=== PATIENT | female | born 1995 ===

== ENCOUNTER 2017-05-06 20:56 | Emergency (ER) | payer MEDICAID ==
[2017-05-06 23:25] VITALS: BP 109/64; PULSE 92; RESP 18; TEMP 98.6; O2SAT 98
[2017-05-07 00:51] LABS: BASO # 0.1 K/uL (0.0-0.2); BASO % 0.7 % (0.0-2.0); EOS # 0.3 K/uL (0.0-0.7); EOS % 2.4 % (0.0-4.0); LYMPH # 2.5 K/uL (1.0-4.3); LYMPH % 23.1 % (20.0-40.0); MEAN CELL VOLUME 83.3 fl (81.0-99.0); MEAN CORPUSCULAR HEMOGLOBIN 27.1 pg (27.0-31.0); MEAN CORPUSCULAR HGB CONC 32.5 g/dL (33.0-37.0); MEAN PLATELET VOLUME 7.4 fl (7.2-11.7); MONO # 0.8 K/uL (0.0-0.8); MONO % 6.9 % (0.0-10.0); NEUT # 7.4 K/uL (1.8-7.0); NEUT % 66.9 % (50.0-75.0); RED CELL DISTRIBUTION WIDTH 14.1 % (11.5-14.5)
[2017-05-07 01:10] LABS: RBC URINE 2 /hpf (0-3); URINE BACTERIA RARE (<OCC); URINE BILIRUBIN NEGATIVE (NEGATIVE); URINE BLOOD NEGATIVE (NEGATIVE); URINE COLOR YELLOW (YELLOW); URINE GLUCOSE (UA) NEG (Normal); URINE KETONE NEGATIVE (NEGATIVE); URINE LEUKOCYTE ESTERASE MOD Leu/uL (Negative); URINE PROTEIN NEGATIVE (NEGATIVE); URINE UROBILINOGEN 0.2-1.0 mg/dL (0.2-1.0); WBC URINE 10 /hpf (0-5)
[2017-05-07 01:28] LABS: ALKALINE PHOSPHATASE 90 U/L (38-126); ALT/SGPT 23 U/L (9-52); AST/SGOT 18 U/L (14-36); BILIRUBIN,TOTAL 0.2 mg/dl (0.2-1.3); BLOOD UREA NITROGEN 6 mg/dl (7-17); CALCIUM 8.6 mg/dL (8.4-10.2); CARBON DIOXIDE 22 mmol/L (22-30); CHLORIDE 105 mmol/L (98-107); GFR AFRICAN-AMERICAN > 60; GLUCOSE,RANDOM 85 mg/dL (65-105); POTASSIUM 3.7 MMOL/L (3.6-5.0); SODIUM 135 mmol/l (132-148); TOTAL PROTEIN 7.3 G/DL (6.3-8.2)
--- NOTE | 2017-05-07 02:47 | ED PDOC ---
HPI: Abdomen Time Seen by Provider: 05/06/17 23:29 Chief Complaint (Nursing): Abdominal Pain Chief Complaint (Provider): abdominal pain History Per: Patient History/Exam Limitations: no limitations Onset/Duration Of Symptoms: Days Location Of Pain/Discomfort: Epigastric Additional History Per: Patient Additional Complaint(s): 22 y/o female, approx 25 weeks gestation, sent from OB-ED for eval of epigastric abdominal pain x 1 day. Denies fever, nausea/vomiting, chest pain, shortness of breath, palpitations, changes in bowel movements, dysuria, hematuria, vaginal bleeding/discharge. Patient currently on treatment for chlamydia. Past Medical History Reviewed: Historical Data, Nursing Documentation, Vital Signs Vital Signs: Last Vital Signs Temp 98.6 F 05/06/17 23:20 Pulse 92 H 05/06/17 23:20 Resp 18 05/06/17 23:20 BP 109/64 05/06/17 23:20 Pulse Ox 98 05/06/17 23:20 - Medical History PMH: Asthma - Surgical History Surgical History: No Surg Hx - Family History Family History: States: Unknown Family Hx - Immunization History Hx Tetanus Toxoid Vaccination: No Hx Influenza Vaccination: No Hx Pneumococcal Vaccination: No - Home Medications Home Medications: Ambulatory Orders Medication Instructions Recorded Albuterol HFA [Ventolin HFA 90 1 puff IH Q6 #1 inhaler 03/02/17 mcg/actuation (8 g)] Nitrofurantoin Macrocrystals 1 cap PO BID #14 cap 03/02/17 [Macrobid] Prednisone [Deltasone] 20 mg PO DAILY #3 tablet 03/02/17 Famotidine [Pepcid] 20 mg PO BID #10 tab 05/07/17 Nitrofurantoin Macrocrystals 100 mg PO BID #14 cap 05/07/17 [Macrobid] - Allergies Allergies/Adverse Reactions: Allergies Allergy/AdvReac Type Severity Reaction Status Date / Time No Known Allergies Allergy Verified 05/06/17 23:25 Review of Systems ROS Statement: Except As Marked, All Systems Reviewed And Found Negative Gastrointestinal: Positive for: Abdominal Pain Physical Exam - Reviewed Nursing Documentation Reviewed: Yes Vital Signs Reviewed: Yes - Physical Exam Appears: Positive for: Well, Non-toxic, No Acute Distress Head Exam: Positive for: ATRAUMATIC, NORMAL INSPECTION, NORMOCEPHALIC Skin: Positive for: Normal Color Eye Exam: Positive for: Normal appearance ENT: Positive for: Normal ENT Inspection Cardiovascular/Chest: Positive for: Regular Rate, Rhythm Respiratory: Positive for: Normal Breath Sounds Gastrointestinal/Abdominal: Positive for: Bowel Sounds, Soft, Tenderness ( epigastric, suprapubic). Negative for: Distended, Rebound Back: Positive for: Normal Inspection Extremity: Positive for: Normal ROM Neurologic/Psych: Positive for: Alert, Oriented - Laboratory Results Result Diagrams: 05/07/17 00:46 05/07/17 00:46 - ECG O2 Sat by Pulse Oximetry: 98 - Progress ED Course And Treament: labs, urine, IV pepcid On re-eval, patient states pain resolved. Patient educated on findings, discharged with rx Pepcid, Macrobid. Patient aware of anemia, advised iron supplement. 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 Return to ED for worsening/concerning symptoms. Disposition - Clinical Impression Clinical Impression: UTI in , Abdominal pain - Patient ED Disposition Is Patient to be Admitted: No Counseled Patient/Family Regarding: Studies Performed, Diagnosis, Need For Followup, Rx Given - Disposition Referrals: Meenu Sandoval MD [Primary Care Provider] - Disposition: Routine/Home Disposition Time: 02:30 Condition: IMPROVED Prescriptions: Famotidine [Pepcid] 20 mg PO BID #10 tab Nitrofurantoin Macrocrystals [Macrobid] 100 mg PO BID #14 cap Instructions: Urinary Tract Infection in Women (ED), Abdominal Pain in (ED)
== END 2017-05-07 03:08 | disposition home or self-care (01) ==
LOC: H.EROB2 20:56 → H.ER 20:56
DX: O23.40 Unspecified infection of urinary tract in pregnancy, unspecified trimester (principal); J45.909 Unspecified asthma, uncomplicated

== ENCOUNTER 2017-08-01 11:01 | Emergency (ER) | payer MEDICAID ==
[2017-08-01 14:12] VITALS: BMI 26.5
[2017-08-01 14:38] LABS: URINE BILIRUBIN NEGATIVE (NEGATIVE); URINE BLOOD NEGATIVE (NEGATIVE); URINE COLOR YELLOW (YELLOW); URINE GLUCOSE (UA) NEG (Normal); URINE KETONE NEGATIVE (NEGATIVE); URINE LEUKOCYTE ESTERASE MOD Leu/uL (Negative); URINE PROTEIN NEGATIVE (NEGATIVE); URINE UROBILINOGEN 0.2-1.0 mg/dL (0.2-1.0); WBC URINE 7 /hpf (0-5)
[2017-08-01] MEDS ORDERED: Lactated Ringer's 1,000 ML IV SCH (15:45)
[2017-08-01 16:29] LABS: BASO # 0.1 K/uL (0.0-0.2); BASO % 0.7 % (0.0-2.0); EOS # 0.1 K/uL (0.0-0.7); EOS % 1.1 % (0.0-4.0); HEMATOCRIT 28.4 % (34.0-47.0); LYMPH # 1.8 K/uL (1.0-4.3); LYMPH % 17.4 % (20.0-40.0); MEAN CELL VOLUME 74.1 fl (81.0-99.0); MEAN CORPUSCULAR HEMOGLOBIN 23.3 pg (27.0-31.0); MEAN CORPUSCULAR HGB CONC 31.5 g/dL (33.0-37.0); MEAN PLATELET VOLUME 7.9 fl (7.2-11.7); MONO # 0.5 K/uL (0.0-0.8); MONO % 4.8 % (0.0-10.0); NEUT # 7.7 K/uL (1.8-7.0); RED CELL DISTRIBUTION WIDTH 16.7 % (11.5-14.5); WHITE BLOOD COUNT 10.2 K/uL (4.8-10.8)
[2017-08-01] MEDS ORDERED: Betamethasone Soluspan 30 mg/5mL Inj Susp IM ONE (18:16)
[2017-08-06 13:48] VITALS: O2SAT 4
== END 2017-08-01 18:33 | disposition home or self-care (01) ==
LOC: H.EROB2 11:01
DX: O47.03 False labor before 37 completed weeks of gestation, third trimester (principal); Z3A.36 36 weeks gestation of pregnancy
CPT/HCPCS: 81003; 85025; 87086; 99283; J7120

== ENCOUNTER 2017-08-02 18:50 | Emergency (ER) | payer MEDICAID ==
--- NOTE | 2017-08-02 18:58 | OBHP ---
Datetime: 08/01/2017 15:54 IP Adm Impression: , intrauterine IP Admit Plan: Observation/Evaluation Admit Comment, IP Provider: Patient is a 22-year-old female 1 with an EDC of 08/27/2017 by a last menstrual period of 11/28/2016 and a 12 week ultrasound. She presents today with complaints of back pain. She denies coitus 1 month she denies ruptured membranes or vaginal bleeding. Her OB hist ory is significant for iron deficiency anemia and a positive chlamydia infection which was treated. OBhx: primigrivid Gynhx: hx of chlamydia, s/p treatment (03/20/17), never had a pap Past medical history: Asthma past surgical history: Denies Social history denies tobacco use alcohol or illicit drug use. No known drug allergies Medications: Proventil inhaler when necessary lately she is taking at several times a week: Ferrou s gluconate: vitamin Impression : 36.2 week gestation- HIV neg (third tri), RPR neg (third), rubella immune, O+, ppd neg, Tdap (06/05). Evaluate for UTI Plan: UA Observation addendum Addendum: Patient complaints of cramping rated 6/10. 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
[2017-08-02 19:48] VITALS: BMI 21.5
[2017-08-02] MEDS ORDERED: Betamethasone Soluspan 30 mg/5mL Inj Susp IM ONE (19:51)
[2017-08-03 01:28] VITALS: BP 107/70; PULSE 94; RESP 18; TEMP 98.1; O2SAT 100
--- NOTE | 2017-08-03 07:10 | OBHP ---
Datetime: 08/02/2017 19:00 IP Adm Impression: , intrauterine IP Admit Plan: Observation/Evaluation Admit Comment, IP Provider: Patient is a 22-year-old female 1 with an EDC of 08/27/2017 by a last menstrual period of 11/28/2016 and a 12 week ultrasound. She presents today for her second beta methasone injection. Last dose was given on 08/01/2017. OBhx: primigrivid Gynhx: hx of chlamydia, s/p treatment (03/20/17), never had a pap Past medical history: Asthma past surgical history: Denies Social history denies tobacco use alcohol or illicit drug use. No known drug allergies Medications: Proventil inhaler when necessary lately she is taking at several times a week: Ferrou s gluconate: vitamin Impression : 36.2 week gestation- HIV neg (third tri), RPR neg (third), rubella immune, O+, ppd neg, Tdap (06/05). Plan: Betamethasone 12mg x second dose Addendum: I saw exam patient at presentation. I discussed plan with patient. Plan for second dose of betamet hasone today. Maternal well-being and well-being reassuring at this time. Patient discharged to home with labor precautions. All patient questions are answered. Pelvic Type - PN: Not Done Extremities - PN: Normal Abdomen - PN: Normal Back - PN: Normal Breast - PN: Not Done Lungs - PN: Normal Heart - PN: Normal Thyroid - PN: Not Done Neurologic - PN: Normal HEENT - PN: Normal General - PN: Normal IP Hx Assessment: The History has been Reviewed and is Current EGA AdmitDate IP: 36.3 Vital Signs Provider: Reviewed; Within Normal Limits IP Chief Complaint: Other Genitourinary Exam: Not Done DTRs - PN: Not Done
== END 2017-08-02 20:30 | disposition home or self-care (01) ==
LOC: H.EROB2 18:50 → H.EROB 18:57 → H.EROB2 20:30
DX: O47.03 False labor before 37 completed weeks of gestation, third trimester (principal); Z3A.36 36 weeks gestation of pregnancy; Z23 Encounter for immunization
CPT/HCPCS: 96372; 99283; J0702

== ENCOUNTER 2017-08-15 13:38 | Inpatient (IN) | payer MEDICAID ==
[2017-08-15 14:37] VITALS: BMI 21.9
--- NOTE | 2017-08-15 15:44 | OBHP ---
Datetime: 08/15/2017 14:50 IP Adm Impression: Term, intrauterine IP Admit Plan: Observation/Evaluation Admit Comment, IP Provider: at 38w2d EDC 08/27/17 based on LMP c/w 1st TM u/s. Presents for cont ractions, more frequent in nature for several hours. Decreased movement since this morning when pain started. Patient only feels tightening of abdomen and can't tell if baby is moving. While being evaluated in OB ED she reports some movement. Denies VB, denies LOF, denies any trauma. PNC: [facility] [address] [place] [address] Dr. Alvares, resident PNI: 1. +chlamydia infection CHRISTIAN neg 07/25/17 2. Anemia: takes iron TID on 08/12/17 H/H 9.5/30.4 3. Growth lagging on u/s x 2 weeks latest u/s 08/13/17 HC 3%, BPD 3% EFW 2810g 16th%. MFM recommend s delivery at 39wks. Torch panel c/w past exposure to Parvovirus B19 and CMV. Neg HSV and neg Toxo. 4. Intermittend Asthma, no exacerbations this 5. GCT+/GTT neg 6. Threatened PTL on 08/01/17 SVE 1/0/-4, received betamethasone x 2 doses. PNL: GBS neg 07/25/17, GC/chla neg 07/25/17, ucx neg, HIV neg 06/12/17, RPR nr, RI, hepbsag neg. Pmhx: intermittent asthma, never intubated Pshx: denies Meds: iron and pnv All: denies Social hx: denies toxic habits x 3 see exam above A/P: 22 y/o at 38w2d here for contractions and decreased movement. 1. Fetus Category 1 tracing, loss of contact and movement on tracing when patient was sitting up t o be transported to u/s. 2. Early latent labor. 3. Decreased movement in setting of lagging growth, BPP done 2 days ago wnl, will repeat now and do prolonged monitoring. If testing is not reassuring will admit. 4. GBS neg 5. Re-examine after BPP. Pelvic Type - PN: Adequate Extremities - PN: Normal Abdomen - PN: Normal Back - PN: Normal Breast - PN: Normal Lungs - PN: Normal Heart - PN: Normal Thyroid - PN: Normal Neurologic - PN: Normal HEENT - PN: Normal General - PN: Normal FHR - Baseline A Provider: 130 Membranes, Provider: Intact Contraction Comments Provider: q5min EGA AdmitDate IP: 38.2 Vital Signs Provider: Reviewed; Within Normal Limits IP Chief Complaint: Uterine contractions; Decreased movement NICHD Variability Prov Fetus A: Moderate 6-25bpm NICHD Accel Fetus A IP Provider: [id number] FHR Category Provider Fetus A: Category I NICHD Decel Fetus A IP Provider: Early Dilatation, Provider: 2 Effacement, Provider: 20 Station, Provider: -3 Genitourinary Exam: Normal DTRs - PN: Normal
--- NOTE | 2017-08-15 15:59 | US ---
PROCEDURE: Limited biophysical profile HISTORY: Decreased movement COMPARISON: Not available TECHNIQUE: Limited biophysical profile examination was performed without general obstetrical ultrasound examination. FINDINGS: There is a single live intrauterine gestation identified in cephalic presentation. The heart rate is 147 beats per minute. A normal quantity of amniotic fluid is visualized. A left lateral placenta is identified. The cervix is poorly visualized due to the cephalic presentation. biometry was not performed at this time. A limited biophysical profile examination yields a score of 8 out of 8. IMPRESSION: Limited examination. Single live intrauterine gestation. Biophysical profile score 8 out of 8.
[2017-08-15] MEDS ORDERED: Lactated Ringer's 1,000 ML IV SCH ×2 (16:25→18:00)
--- NOTE | 2017-08-15 16:27 | OBHP ---
Datetime: 08/15/2017 16:20 Admit Comment, IP Provider: I saw and examined the patient and I reviewed the entire record on ecw and meditech and centricity. BPP: 07/09 NST non reactive SVE: 3-4/50/-3 A/P: on re-evaluation patient has non reassuring NST, early active labor, fetus with lagging growth x 2 weeks 1. admit to L_D, NPO, IVF, check labs 2. Fetus continuous monitoring, Cat 2 tracing 3. GBS neg 4. Patient requests epidural placement for analgesia 5. pelvis adequate, anticipate , vertex by u/s today 6. case d/w Dr. Sandoval Presentation-Admit: Vertex FHR - Baseline A Provider: 135 Contraction Comments Provider: Q4 NICHD Variability Prov Fetus A: Moderate 6-25bpm NICHD Accel Fetus A IP Provider: one FHR Category Provider Fetus A: Category II NICHD Decel Fetus A IP Provider: Early Dilatation, Provider: 3-4 Effacement, Provider: 50 Station, Provider: -3
[2017-08-15] MEDS: Lactated Ringer's 1,000 ML IV SCH ×2 (16:30→17:30)
[2017-08-15 16:58] LABS: BASO # 0.1 K/uL (0.0-0.2); BASO % 0.5 % (0.0-2.0); EOS % 0.3 % (0.0-4.0); HEMATOCRIT 30.3 % (34.0-47.0); LYMPH # 1.4 K/uL (1.0-4.3); MEAN CELL VOLUME 72.4 fl (81.0-99.0); MEAN CORPUSCULAR HEMOGLOBIN 22.2 pg (27.0-31.0); MEAN CORPUSCULAR HGB CONC 30.6 g/dL (33.0-37.0); MEAN PLATELET VOLUME 7.6 fl (7.2-11.7); MONO % 6.3 % (0.0-10.0); NEUT # 13.4 K/uL (1.8-7.0); NEUT % 83.9 % (50.0-75.0); PLATELET COUNT 299 K/uL (130-400); RED CELL DISTRIBUTION WIDTH 17.6 % (11.5-14.5); WHITE BLOOD COUNT 15.9 K/uL (4.8-10.8)
[2017-08-15] MEDS ORDERED: Fentanyl/Bupivacaine HCl 250 ML EPI ONE (18:15)
[2017-08-15 18:36] LABS: NEUTROPHIL 79 % (42-75); TOTAL CELLS COUNTED 100
[2017-08-16] MEDS ORDERED: Oxycodone/Acetaminophen 5/325 mg Tab PO PRN ×2 (01:29→02:38)
--- NOTE | 2017-08-16 02:37 | OBDS ---
DELIVERY PERSONNEL Delivery Doctor: Mahamed Aleman MD Director [employer]: Elisabeth Patel RN Anesthesiologist: Joe Santiago MD Resident: Frederick Alvares MATERNAL INFORMATION Delivery Anesthesia: Epidural Medications in Delivery: Pitocin Estimated Blood Loss (ml): 200 Placenta Cultured: No Maternal Complications: None Provider Comments: Dilivered live baby girl at 1:18 AM the baby was bulb suctioned on the perinium a nd transfered to the maternal chest. The cord was clamped, 3 vessels noted. Cord blood was obtained a nd sent to the lab. The placenta was delivered at 1:26 AM intact. Estimated blood loss was 200 ml. Fi rst degree laceration was noted and repaired with 3.0 vicryl. Mother tolerated the procedure [facility] Lurdes Alvares PGY-2 LABOR SUMMARY EDC: 08/27/2017 00:00 No. Babies in Womb: 1 Attempted: No Labor Anesthesia: Epidural LABOR INFORMATION Reason for Induction: Not Applicable Onset of Labor: 08/15/2017 17:30 Complete Dilatation: 08/15/2017 23:37 Group B Beta Strep: Negative Antibiotics # of Doses: n/a Antibiotics Time of Last Dose: n/a Steroids Given: None Reason Steroids Not Administered: Not Applicable MEMBRANES Membranes Rupture Method: Artificial Rupture of Membranes: 08/15/2017 19:00 Length of Rupture (hrs): 6.30 Amniotic Fluid Color: Clear Amniotic Fluid Amount: Small Amniotic Fluid Odor: Normal STAGES OF LABOR Stage 1 hrs: 6 Stage 1 min: 7 Stage 2 hrs: 1 Stage 2 min: 41 Stage 3 hrs: 0 Stage 3 min: 18 Total Time in Labor hrs: 8 Total Time in Labor min: 6 VAGINAL DELIVERY Episiotomy: None Laceration Extension: First Degree Laceration Type: Vaginal Laceration Repair: Yes Laceration Repair Note: Repaired with 3-0 vicryl Initial Vag Sponge Count: 15 Final Vag Sponge Count: 15 Initial Vag Sharps Count: 1 Final Vag Sharps Count: 1 Sponge Count Correct: Yes Sharps Count Correct: Yes Count Comment: count correct BABY A INFORMATION Infant Delivery Date/Time: 08/16/2017 01:18 Method of Delivery: Vaginal Born in Route : No : N/A Forceps: N/A Vacuum Extraction: N/A Shoulder Dystocia : No SHOULDER DYSTOCIA BABY A Delivery Date/Time: 08/16/2017 01:18 PRESENTATION/POSITION BABY A Presentation: Cephalic Cephalic Presentation: Vertex PLACENTA INFORMATION BABY A Placenta Delivery Time : 08/16/2017 01:36 Placenta Method of Delivery: Spontaneous Placenta Status: Delivered SCORES BABY A Heart Rate 1 min: >100 bpm Resp Effort 1 min: Good Cry Reflex Irritability 1 min: Cough or Sneeze or Pulls Away Muscle Tone 1 min: Active Motion Color 1 min: Body [place], Extremities Blue Resuscitation Effort 1 min: Tactile Stimulation SCORE 1 MIN: 9 Heart Rate 5 min: >100 bpm Resp Effort 5 min: Good Cry Reflex Irritability 5 min: Cough or Sneeze or Pulls Away Muscle Tone 5 min: Active Motion Color 5 min: Body [place], Extremities Blue Resuscitation Effort 5 min: N/A SCORE 5 MIN: 9 INFORMATION BABY A Gestational Age at Delivery: 38.3 Gestational Status: Term Outcome : Liveborn Condition : Stable Sex: Female IDENTIFICATION/MEDS BABY A ID Band Number: [id number] ID Band Location: Left Leg; Left Arm WEIGHT/LENGTH BABY A Birthweight (gms): 2635 Infant Weight (lb): 5 Weight (oz): 13 CORD INFORMATION BABY A No. 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
[2017-08-16] MEDS ORDERED: Influenza Vaccine 18yr & older 0.5 ML/45 MCG SYR IM ONE (20:00)
[2017-08-17 06:36] LABS: MEAN CELL VOLUME 73.1 fl (81.0-99.0); MEAN CORPUSCULAR HEMOGLOBIN 22.2 pg (27.0-31.0); MEAN CORPUSCULAR HGB CONC 30.4 g/dL (33.0-37.0); RED CELL DISTRIBUTION WIDTH 17.5 % (11.5-14.5); WHITE BLOOD COUNT 20.7 K/uL (4.8-10.8)
--- NOTE | 2017-08-17 10:25 | OBPPN ---
Datetime: 08/16/2017 06:53 PP Pain Prov: Within normal limits PP Nausea Prov: Denies PP Flatus Prov: Yes PP BM Prov: No PP Breasts Prov: Not Done PP Heart Prov: Normal PP Lungs Prov: Normal PP Abdomen/Uterus Prov: Normal PP Lochia Prov: Normal PP Vulva/Perineum Prov: Not Done PP CVA Tenderness Prov: Normal PP Extremities Prov: Normal PP C/S Incision Prov: Not Applicable PP Progress Prov: Normal PP Impression Prov: Normal progression PP Plan Prov: Continue present management PP Progress Note Prov: S: 22 yo s/p NVD on 08/06/17 at 01:18. Pt. is seen and examined at [facility] this AM. No overnight events. Pt denies abdominal pain. Pt is ambulating without any difficulties. Breast feeding baby. Lochia is similar to light menses in volume. Voiding freely, No Bowel movement, but passing gas per rectum. Denies fever/chills, diarrhea, nausea/vomiting, chest pain, dyspnea, and dizziness. O: VS: stable GEN: NAD Cardio: S1S2, no M/G/R Resp: clear breath sounds b/l Abdomen: BS+, NT, Uterus is firm and at the level of the umbilicus. EXT: No edema, calves nontender NEURO/PSYCHI: AAOx3, no grossly focal deficit, preserved affect and mood. Assessment/Plan: 22 yo s/p NVD on 08/06/17 at 01:18. Pt remains afebrile, doing well on PPD0. OOB with caution SCDs for DVT prophylaxis, pt ambulating Ibuprofen 600mg for pain. Colace 100mg PO BID/Senokot 17.2 mg qHS for constipation Encourage and ambulating F/u CBC post-delivery: pending --- Franklin Wyman, PGY-1 [facility] On rounds this AM, I saw and examined this patinent. Agree with PGY1 note. BARB MUELLER PP Procedures: None Vital Signs Provider PP: Reviewed; Within Normal Limits
--- NOTE | 2017-08-17 11:16 | OBPPN ---
Datetime: 08/17/2017 11:10 PP Pain Prov: Within normal limits PP Nausea Prov: Denies PP Flatus Prov: Yes PP BM Prov: Yes PP Breasts Prov: Normal PP Heart Prov: Normal PP Lungs Prov: Normal PP Abdomen/Uterus Prov: Normal PP Lochia Prov: Normal PP Vulva/Perineum Prov: Normal PP CVA Tenderness Prov: Normal PP Extremities Prov: Normal PP Progress Prov: Normal PP Impression Prov: Normal progression PP Plan Prov: Continue present management PP Progress Note Prov: PPD 1 anemia (hb 6/ hct 22) Asymtpomatic continue care monitor vital/orthostatics Vital Signs Provider PP: Reviewed; Within Normal Limits
[2017-08-17 20:41] LABS: BASO # 0.1 K/uL (0.0-0.2); BASO % 0.6 % (0.0-2.0); EOS # 0.2 K/uL (0.0-0.7); HEMATOCRIT 28.8 % (34.0-47.0); LYMPH # 2.1 K/uL (1.0-4.3); LYMPH % 10.4 % (20.0-40.0); MEAN CELL VOLUME 75.4 fl (81.0-99.0); MEAN CORPUSCULAR HEMOGLOBIN 23.3 pg (27.0-31.0); MEAN CORPUSCULAR HGB CONC 30.9 g/dL (33.0-37.0); MEAN PLATELET VOLUME 7.8 fl (7.2-11.7); MONO # 0.9 K/uL (0.0-0.8); MONO % 4.7 % (0.0-10.0); NEUT # 16.5 K/uL (1.8-7.0); NEUT % 83.3 % (50.0-75.0); NRBC % 0.1 % (0.0-0.0); WHITE BLOOD COUNT 19.8 K/uL (4.8-10.8)
[2017-08-17] MEDS ORDERED: Pneumococcal 23-Valent Vaccine IM ONE (21:00)
--- NOTE | 2017-08-18 07:24 | OBPPN ---
Datetime: 08/18/2017 07:19 PP Pain Prov: Within normal limits PP Nausea Prov: Denies PP Flatus Prov: Yes PP Breasts Prov: Not Done PP Heart Prov: Normal PP Lungs Prov: Normal PP Abdomen/Uterus Prov: Normal PP Lochia Prov: Normal PP Vulva/Perineum Prov: Normal PP CVA Tenderness Prov: Normal PP Extremities Prov: Normal PP Progress Prov: Normal PP Impression Prov: Normal progression PP Plan Prov: Discharge PP Impression Other Prov: S/P transfusion PP Progress Note Prov: OB Attending note. Notified yesterday by PGY1 that she had abnormal orhtostatic BP/P and she was trasnfused one unit PRBC. Today, she feels fine. A: S/P day 2 PLAN discharge home and follow up in 6w Vital Signs Provider PP: Reviewed; Within Normal Limits
--- NOTE | 2017-08-18 07:24 | OBDCSUM ---
Datetime: 08/18/2017 07:21 Discharged to, Provider: Home Follow up at, Provider: [facility] Disch Instr Activity: Normal activity Disch Instr Diet: Regular Discharge Instructions, Provider: Routine instructions given Discharge Diagnosis, Provider: Term Delivered Follow up in weeks, Provider: 6w Disch Referrals: None Contraception discussed, Prov: Yes Discharge Comment, Provider: Transfusion one unit PRBC Hb 6 Discharge Diagnosis Prov Other: Anemia
[2017-08-18 15:52] VITALS: BP 98/70; PULSE 76; RESP 20; TEMP 97.9; O2SAT 99
== END 2017-08-18 11:25 | disposition home or self-care (01) | DRG 373 ==
LOC: H.EROB2 13:38 → H.L&D 16:26 → H.OB/GYN 08-16 03:40
PROVIDERS: ADMIT Family Medicine; ATTEND Family Medicine
PROC: 0HQ9XZZ Repair Perineum Skin, External Approach (ICD-10-PCS; principal; 2017-08-15)
PROC: 10E0XZZ Delivery of Products of Conception, External Approach (ICD-10-PCS; 2017-08-15)
PROC: 4A1HXCZ Monitoring of Products of Conception, Cardiac Rate, External Approach (ICD-10-PCS; 2017-08-15)
DX: O70.0 First degree perineal laceration during delivery (principal); D64.9 Anemia, unspecified; O99.02 Anemia complicating childbirth; Z37.0 Single live birth; Z3A.38 38 weeks gestation of pregnancy; J45.909 Unspecified asthma, uncomplicated; O99.52 Diseases of the respiratory system complicating childbirth